=== PATIENT | male | born 1950 | race Caucasian/White ===

== ENCOUNTER 2016-06-09 14:31 | Inpatient (IN) | payer MEDICARE, BC, OTHER ==
[~2016-06-09] VITALS: Ht 182.9 cm; Wt 90.0 kg
[2016-06-09 14:34] VITALS: O2SAT 98
[2016-06-09] MEDS ORDERED: MORPHINE SULFATE 8 MG/ML INJ ONE (14:34)
[2016-06-09] MEDS ORDERED: ONDANSETRON HCL 4 MG/2 ML VIAL ONE (14:34)
[2016-06-09] MEDS ORDERED: DIPHTH/TETANUS/ACEL PERTUSSIS (BOOSTER) 0.5 ML VIAL/PFS IM ONE ×2 (14:37→15:13)
[2016-06-09] MEDS ORDERED: ceFAZolin 2 GM PREMIX 50 ML ONE (14:37)
[2016-06-09] MEDS: SODIUM CHLOR 0.9% 1000 ML INJ 1,000 ML IV SCH (15:01)
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
[2016-06-09] MEDS ORDERED: NALOXONE HCL 0.4 MG/ML AMP IV PRN (15:15)
[2016-06-09] MEDS ORDERED: MORPHINE SULFATE 4 MG/ML INJ IV PRN (15:15)
[2016-06-09] MEDS ORDERED: ONDANSETRON HCL 4 MG/2 ML VIAL IV PRN (15:15)
[2016-06-09] MEDS ORDERED: Post-op Orders (for Pharmacy) MISC XX ONE (15:15)
[2016-06-09] MEDS ORDERED: ACETAMINOPHEN/HYDROcodone 325 MG/5 MG TAB PO PRN (15:15)
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
[2016-06-09] MEDS ORDERED: MORPHINE SULFATE 4 MG/ML INJ IV PUSH ONE (15:30)
[2016-06-09 15:40] VITALS: BP 120/57; PULSE 46; RESP 20; O2SAT 96
[2016-06-09] MEDS ORDERED: LIDOCAINE 1%/EPINEPHrine 1:100,000 SOLN 20 ML VIAL INFIL ONE (15:45)
[2016-06-09 15:47] LABS: I-STAT POTASSIUM 4.2 MMOL/L (3.5-4.9)
[2016-06-09 16:00] VITALS: BP 122/58; PULSE 48; RESP 20; O2SAT 96
[2016-06-09 16:00] LABS: AUTOMATED NEUTROPHIL # 10.8 TH/MM3 (1.8-7.7); BASOPHIL % 0.1 % (0.0-2.0); EOSINOPHIL # 0.1 TH/MM3 (0-0.4); HEMATOCRIT 42.9 % (39.0-51.0); HEMO FLAGS DIFF FINAL; LYMPHOCYTE # 1.4 TH/MM3 (1.0-4.8); MEAN CELL VOLUME 94.8 FL (80.0-100.0); MEAN CORPUSCULAR HEMOGLOBIN 32.2 PG (27.0-34.0); MONO % 6.1 % (0.0-8.0); NEUT % 81.8 % (16.0-70.0); PLATELET COUNT 187 TH/MM3 (150-450); RED BLOOD COUNT 4.53 MIL/MM3 (4.50-5.90); RED CELL DISTRIBUTION WIDTH 13.3 % (11.6-17.2); WHITE BLOOD COUNT 13.1 TH/MM3 (4.0-11.0)
[2016-06-09] MEDS ORDERED: MORPHINE SULFATE 4 MG/ML INJ IV ONE (16:00)
[2016-06-09] MEDS ORDERED: ONDANSETRON HCL 4 MG/2 ML VIAL IV ONE (16:00)
[2016-06-09 16:11] LABS: APTT (PATIENT) 25.2 SEC (24.3-30.1); INTERNATIONAL NORMALIZED RATIO 1.1 RATIO; PROTHROMBIN TIME - PATIENT 12.1 SEC (9.8-11.6)
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
[2016-06-09] MEDS ORDERED: IOHEXOL 350 MG/ML 10 ML VIAL (for RAD DIAG) IV ONE (17:20)
[2016-06-09] MEDS ORDERED: FLUO-1 PO (17:55)
[2016-06-09] MEDS ORDERED: METF500T PO (17:55)
[2016-06-09] MEDS ORDERED: DICL50TA PO (17:55)
[2016-06-09] MEDS ORDERED: APIX5TAB PO (17:55)
[2016-06-09] MEDS ORDERED: ATOR40TA16 PO (17:55)
[2016-06-09] MEDS ORDERED: METO25TA3 PO (17:55)
[2016-06-09] MEDS ORDERED: RAMI10CA PO (17:55)
[2016-06-09] MEDS ORDERED: CLON0.5T PO (17:55)
[2016-06-09] MEDS ORDERED: ABIL5TAB6 PO (17:55)
[2016-06-09] MEDS ORDERED: AMLO5TAB2 PO (17:55)
[2016-06-09] MEDS ORDERED: BENZ100 PO (17:55)
[2016-06-09] MEDS ORDERED: PERC7.5T13 PO (17:55)
[2016-06-09] MEDS ORDERED: FLUT1SPR5 EACH NARE (17:55)
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
[2016-06-09] MEDS: LACTATED RINGER'S 1000 ML INJ 1,000 ML IV SCH (18:27)
[2016-06-09] MEDS: PANTOPRAZOLE SOD 40 MG DELAYED RELEASE TAB PO SCH (18:28)
[2016-06-09] MEDS ORDERED: DEXTROSE 50% IN WATER 50 ML VIAL(D50) IV PUSH PRN (18:45)
[2016-06-09] MEDS ORDERED: GLUCAGON 1 MG/ML VIAL OTHER PRN (18:45)
[2016-06-09 20:00] VITALS: BP 144/81; PULSE 57; RESP 18; TEMP 98.2; O2SAT 95
[2016-06-09] MEDS: SODIUM CHLORIDE 0.9% FLUSH 5 ML FLUSH IVF SCH (21:00)
[2016-06-09] MEDS: DOCUSATE SODIUM 100 MG CAP PO SCH (21:17)
[2016-06-09] MEDS: HYDROmorphone HCL PF 1 MG/ML VIAL IV PUSH PRN (21:21)
[2016-06-09] MEDS: INSULIN ASPART SUPPLEMENTAL SCALE SQ SCH (21:30)
[2016-06-10] VITALS (7 sets, daily range): BP systolic 104–147; BP diastolic 51–65; PULSE 60–77; RESP 18–20; TEMP 97.6–99; O2SAT 92–97
[2016-06-10] MEDS: HYDROmorphone HCL PF 1 MG/ML VIAL IV PUSH PRN ×7 (00:24→21:20)
[2016-06-10] MEDS: LACTATED RINGER'S 1000 ML INJ 1,000 ML IV SCH (00:55)
[2016-06-10] MEDS: SODIUM CHLOR 0.9% 1000 ML INJ 1,000 ML IV SCH ×3 (01:01→21:02)
[2016-06-10] MEDS ORDERED: SODIUM CHLORID 0.9% 500 ML INJ 500 ML IV ONE (05:30)
[2016-06-10] MEDS: INSULIN ASPART SUPPLEMENTAL SCALE SQ SCH ×4 (05:43→21:00)
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
[2016-06-10] MEDS: ARIPiprazole 5 MG TAB PO SCH (08:29)
[2016-06-10] MEDS: FLUoxetine HCL 10 MG CAP PO SCH (08:29)
[2016-06-10] MEDS: RAMIPRIL 5 MG CAP PO SCH (08:30)
[2016-06-10] MEDS: ATORVASTATIN 40 MG TAB PO SCH (08:30)
[2016-06-10] MEDS: amLODIPine BESYLATE 5 MG TAB PO SCH (08:30)
[2016-06-10] MEDS: DOCUSATE SODIUM 100 MG CAP PO SCH ×2 (08:30→21:00)
[2016-06-10 08:39] LABS: AUTOMATED NEUTROPHIL # 9.4 TH/MM3 (1.8-7.7); BASOPHIL % 0.1 % (0.0-2.0); EOSINOPHIL # 0.2 TH/MM3 (0-0.4); EOSINOPHIL % 1.6 % (0.0-4.0); HEMATOCRIT 38.9 % (39.0-51.0); HEMO FLAGS DIFF FINAL; LYMPH % 10.7 % (9.0-44.0); LYMPHOCYTE # 1.3 TH/MM3 (1.0-4.8); MEAN CELL VOLUME 96.8 FL (80.0-100.0); MEAN CORPUSCULAR HGB CONC 34.1 % (32.0-36.0); MONO % 8.3 % (0.0-8.0); NEUT % 79.3 % (16.0-70.0); PLATELET COUNT 155 TH/MM3 (150-450); RED BLOOD COUNT 4.02 MIL/MM3 (4.50-5.90); RED CELL DISTRIBUTION WIDTH 13.5 % (11.6-17.2); WHITE BLOOD COUNT 11.8 TH/MM3 (4.0-11.0)
[2016-06-10] MEDS: SODIUM CHLORIDE 0.9% FLUSH 5 ML FLUSH IVF SCH ×2 (08:50→21:00)
[2016-06-10 08:54] LABS: BICARBONATE 23.5 MEQ/L (21.0-32.0); POTASSIUM 4.1 MEQ/L (3.5-5.1)
[2016-06-10] MEDS ORDERED: DILTIAZEM-CD 180 MG CAP ER PO SCH (09:00)
[2016-06-10] MEDS: SODIUM CHLORIDE 0.9% FLUSH 5 ML FLUSH IVF PRN ×3 (09:50→16:08)
[2016-06-10] MEDS ORDERED: oxyCODONE/ACETAMINOPHEN 5 MG/325 MG TAB PO PRN (10:30)
[2016-06-10] MEDS: oxyCODONE/ACETAMINOPHEN 5 MG/325 MG TAB PO PRN ×2 (11:21→17:38)
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
[2016-06-10] MEDS: TAMSULOSIN HCL 0.4 MG CAP PO SCH (13:01)
--- NOTE | 2016-06-10 13:29 | EKG ---
Date Performed: 06/09/2016 Time Performed: 15:53:33 PTAGE: 89 years EKG: SINUS BRADYCARDIA BORDERLINE ECG NO PREVIOUS TRACING DOCTOR: Fred Weiss Interpretating Date/Time 06/10/2016 13:27:56
[2016-06-10] MEDS ORDERED: WALKER WHEELS/F1 MIS (15:15)
[2016-06-10] MEDS: PANTOPRAZOLE SOD 40 MG DELAYED RELEASE TAB PO SCH (16:05)
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
[2016-06-11] VITALS: BP 150/69; PULSE 82; RESP 18; TEMP 97.8; O2SAT 94
[2016-06-11] MEDS: oxyCODONE/ACETAMINOPHEN 5 MG/325 MG TAB PO PRN ×4 (00:59→18:35)
[2016-06-11] MEDS: HYDROmorphone HCL PF 1 MG/ML VIAL IV PUSH PRN ×4 (05:09→22:16)
[2016-06-11] MEDS: INSULIN ASPART SUPPLEMENTAL SCALE SQ SCH ×4 (05:10→21:00)
[2016-06-11] MEDS: SODIUM CHLOR 0.9% 1000 ML INJ 1,000 ML IV SCH (05:11)
[2016-06-11] MEDS: TAMSULOSIN HCL 0.4 MG CAP PO SCH (07:29)
[2016-06-11] MEDS: ARIPiprazole 5 MG TAB PO SCH (07:29)
[2016-06-11] MEDS: DOCUSATE SODIUM 100 MG CAP PO SCH ×2 (07:30→22:16)
[2016-06-11] MEDS: RAMIPRIL 5 MG CAP PO SCH (07:30)
[2016-06-11] MEDS: FLUoxetine HCL 10 MG CAP PO SCH (07:30)
[2016-06-11] MEDS: amLODIPine BESYLATE 5 MG TAB PO SCH (07:30)
[2016-06-11] MEDS: ATORVASTATIN 40 MG TAB PO SCH (07:31)
[2016-06-11] MEDS: SODIUM CHLORIDE 0.9% FLUSH 5 ML FLUSH IVF SCH ×2 (07:33→09:39)
[2016-06-11 07:51] VITALS: O2SAT 95
[2016-06-11 08:00] VITALS: BP 141/64; PULSE 65; RESP 16; TEMP 99; O2SAT 96
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
[2016-06-11] MEDS ORDERED: LACTULOSE SYRUP 20 GM/30 ML CUP PO ONE (10:30)
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
[2016-06-11 12:00] VITALS: BP 115/58; PULSE 63; RESP 16; TEMP 98.5; O2SAT 96
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
[2016-06-11 16:00] VITALS: BP 133/61; PULSE 87; RESP 18; TEMP 98.9; O2SAT 96
[2016-06-11] MEDS: PANTOPRAZOLE SOD 40 MG DELAYED RELEASE TAB PO SCH (16:28)
[2016-06-11 20:00] VITALS: BP 130/65; PULSE 77; RESP 20; TEMP 98.5; O2SAT 94
[2016-06-11] MEDS: APIXABAN 5 MG TABLET PO SCH (22:16)
[2016-06-12] VITALS: BP 145/71; PULSE 78; RESP 20; TEMP 98.3; O2SAT 93
[2016-06-12] MEDS: oxyCODONE/ACETAMINOPHEN 5 MG/325 MG TAB PO PRN ×3 (04:18→17:35)
[2016-06-12] MEDS: HYDROmorphone HCL PF 1 MG/ML VIAL IV PUSH PRN ×3 (05:53→18:29)
[2016-06-12] MEDS: INSULIN ASPART SUPPLEMENTAL SCALE SQ SCH ×4 (05:56→20:31)
[2016-06-12] MEDS ORDERED: BISACODYL 10 MG SUPP RECTAL ONE (08:15)
[2016-06-12] MEDS ORDERED: BISACODYL EC 5 MG TABEC PO ONE (08:15)
[2016-06-12 08:26] VITALS: BP 120/58; PULSE 79; RESP 19; TEMP 98.7; O2SAT 94
[2016-06-12] MEDS: ARIPiprazole 5 MG TAB PO SCH (08:27)
[2016-06-12] MEDS: FLUoxetine HCL 10 MG CAP PO SCH (08:28)
[2016-06-12] MEDS: RAMIPRIL 5 MG CAP PO SCH (08:29)
[2016-06-12] MEDS: TAMSULOSIN HCL 0.4 MG CAP PO SCH (08:30)
[2016-06-12] MEDS: amLODIPine BESYLATE 5 MG TAB PO SCH (08:30)
[2016-06-12] MEDS: ATORVASTATIN 40 MG TAB PO SCH (08:31)
[2016-06-12] MEDS: APIXABAN 5 MG TABLET PO SCH ×2 (08:31→20:54)
[2016-06-12] MEDS: DOCUSATE SODIUM 100 MG CAP PO SCH ×2 (08:31→20:54)
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
[2016-06-12] MEDS: SODIUM CHLORIDE 0.9% FLUSH 5 ML FLUSH IVF SCH ×2 (12:07→20:54)
[2016-06-12] MEDS ORDERED: TAMS5CAP PO (12:12)
[2016-06-12] MEDS ORDERED: PANT40TA3 PO (12:12)
[2016-06-12] MEDS ORDERED: ARIP1TAB11 PO (12:12)
[2016-06-12] MEDS ORDERED: RAMI5CAP PO (12:12)
[2016-06-12] MEDS ORDERED: AMLO5 PO (12:12)
[2016-06-12] MEDS ORDERED: APIX5TAB PO (12:12)
[2016-06-12] MEDS ORDERED: FLUO-1 PO (12:12)
[2016-06-12] MEDS ORDERED: LIPI40TA PO (12:12)
[2016-06-12] MEDS ORDERED: DOCU1CAP39 PO (12:12)
[2016-06-12 12:44] VITALS: BP 150/70; PULSE 82; RESP 19; TEMP 97; O2SAT 94
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
[2016-06-12 15:15] VITALS: O2SAT 98
[2016-06-12 17:21] VITALS: BP 132/63; PULSE 76; RESP 20; TEMP 96.9; O2SAT 93
[2016-06-12] MEDS: PANTOPRAZOLE SOD 40 MG DELAYED RELEASE TAB PO SCH (17:34)
[2016-06-12 20:00] VITALS: BP 118/58; PULSE 75; RESP 19; TEMP 97.1; O2SAT 93
[2016-06-12] MEDS: MAGNESIUM HYDROXIDE SUSP 30 ML CUP PO SCH (20:54)
[2016-06-13] VITALS: BP 97/52; PULSE 77; RESP 19; TEMP 96.2; O2SAT 94
[2016-06-13] MEDS: HYDROmorphone HCL PF 1 MG/ML VIAL IV PUSH PRN ×4 (01:42→21:05)
[2016-06-13] MEDS: INSULIN ASPART SUPPLEMENTAL SCALE SQ SCH ×2 (05:16→20:10)
[2016-06-13] MEDS: oxyCODONE/ACETAMINOPHEN 5 MG/325 MG TAB PO PRN ×3 (06:03→20:12)
[2016-06-13] MEDS: ARIPiprazole 5 MG TAB PO SCH (07:48)
[2016-06-13] MEDS: FLUoxetine HCL 10 MG CAP PO SCH (07:48)
[2016-06-13] MEDS: DOCUSATE SODIUM 100 MG CAP PO SCH ×2 (07:49→20:11)
[2016-06-13] MEDS: ATORVASTATIN 40 MG TAB PO SCH (07:49)
[2016-06-13] MEDS: RAMIPRIL 5 MG CAP PO SCH (07:49)
[2016-06-13] MEDS: amLODIPine BESYLATE 5 MG TAB PO SCH (07:49)
[2016-06-13] MEDS: TAMSULOSIN HCL 0.4 MG CAP PO SCH (07:49)
[2016-06-13] MEDS: SODIUM CHLORIDE 0.9% FLUSH 5 ML FLUSH IVF SCH ×2 (07:51→20:11)
[2016-06-13 08:00] VITALS: BP 115/52; PULSE 88; RESP 19; TEMP 99.2; O2SAT 95
[2016-06-13] MEDS ORDERED: BISACODYL 10 MG SUPP RECTAL ONE (08:15)
[2016-06-13] MEDS ORDERED: BISACODYL EC 5 MG TABEC PO ONE (08:15)
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
[2016-06-13 12:00] VITALS: BP 166/90; PULSE 91; RESP 18; TEMP 98.1; O2SAT 95
[2016-06-13] MEDS: APIXABAN 5 MG TABLET PO SCH ×2 (13:10→20:26)
[2016-06-13] MEDS: PANTOPRAZOLE SOD 40 MG DELAYED RELEASE TAB PO SCH (14:13)
[2016-06-13 16:00] VITALS: BP 121/45; PULSE 89; RESP 20; TEMP 98.8; O2SAT 95
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
[2016-06-13 20:00] VITALS: BP 137/55; PULSE 73; RESP 20; TEMP 98.6; O2SAT 95
[2016-06-13] MEDS: DOCUSATE SODIUM 50 MG/SENNA 8.6 MG TAB PO SCH (20:11)
[2016-06-13] MEDS: MAGNESIUM HYDROXIDE SUSP 30 ML CUP PO SCH (20:11)
[2016-06-14] VITALS: BP 133/64; PULSE 75; RESP 19; TEMP 97.7; O2SAT 93
[2016-06-14] MEDS: oxyCODONE/ACETAMINOPHEN 5 MG/325 MG TAB PO PRN ×2 (01:59→10:57)
[2016-06-14] MEDS: INSULIN ASPART SUPPLEMENTAL SCALE SQ SCH ×2 (05:35→10:59)
[2016-06-14] MEDS: HYDROmorphone HCL PF 1 MG/ML VIAL IV PUSH PRN (06:41)
[2016-06-14 08:00] VITALS: BP 130/62; PULSE 60; RESP 20; TEMP 97.2; O2SAT 94
[2016-06-14] MEDS: ATORVASTATIN 40 MG TAB PO SCH (08:41)
[2016-06-14] MEDS: ARIPiprazole 5 MG TAB PO SCH (08:41)
[2016-06-14] MEDS: amLODIPine BESYLATE 5 MG TAB PO SCH (08:41)
[2016-06-14] MEDS: FLUoxetine HCL 10 MG CAP PO SCH (08:41)
[2016-06-14] MEDS: APIXABAN 5 MG TABLET PO SCH (08:41)
[2016-06-14] MEDS: TAMSULOSIN HCL 0.4 MG CAP PO SCH (08:41)
[2016-06-14] MEDS: DOCUSATE SODIUM 100 MG CAP PO SCH (08:42)
[2016-06-14] MEDS: DOCUSATE SODIUM 50 MG/SENNA 8.6 MG TAB PO SCH (08:42)
[2016-06-14] MEDS: SODIUM CHLORIDE 0.9% FLUSH 5 ML FLUSH IVF SCH (08:42)
[2016-06-14] MEDS: RAMIPRIL 5 MG CAP PO SCH (08:42)
[2016-06-14] MEDS ORDERED: MAGNESIUM CITRATE SOLN 300 ML BTL PO ONE (09:00)
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
[2016-06-14] MEDS ORDERED: OXYC1TAB63 PO (10:57)
[2016-06-14 12:00] VITALS: BP 130/63; PULSE 66; RESP 19; TEMP 98; O2SAT 96
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
[2016-07-03] MEDS ORDERED: FEXO15TA PO (07:50)
[2016-07-03] MEDS ORDERED: HYDR-3288 PO (11:04)
[2016-07-03] MEDS ORDERED: PERC7.5T13 PO (11:07)
== END 2016-06-14 14:28 | DRG 563 ==
LOC: NEPI 14:31 → NEDA 15:48 → EDBD 15:48 → N07B 19:00
PROVIDERS: ADMIT Surgery; ATTEND Surgery
PROC: 0HQ1XZZ Repair Face Skin, External Approach (ICD-10-PCS; principal; 2016-06-09)
PROC: 0T9B70Z Drainage of Bladder with Drainage Device, Via Natural or Artificial Opening (ICD-10-PCS; 2016-06-10)
DX: S52.542A Smith's fracture of left radius, initial encounter for closed fracture (principal); I95.9 Hypotension, unspecified; I48.91 Unspecified atrial fibrillation; I10 Essential (primary) hypertension; R00.1 Bradycardia, unspecified; S01.21XA Laceration without foreign body of nose, initial encounter; E11.9 Type 2 diabetes mellitus without complications; E78.5 Hyperlipidemia, unspecified; K59.00 Constipation, unspecified; N40.1 Benign prostatic hyperplasia with lower urinary tract symptoms; R33.8 Other retention of urine; M19.032 Primary osteoarthritis, left wrist; M19.042 Primary osteoarthritis, left hand; F17.210 Nicotine dependence, cigarettes, uncomplicated; F32.9 Major depressive disorder, single episode, unspecified; V29.9XXA Motorcycle rider (driver) (passenger) injured in unspecified traffic accident, initial encounter; Z79.01 Long term (current) use of anticoagulants; Z79.84 Long term (current) use of oral hypoglycemic drugs
CPT/HCPCS: 12011; 70450; 71010; 72125; 72170; 73110; 73200; 74177; 76937; 80048; 82435; 82565; 82947; 82948; 84132; 84295; 84520; 85025; 85610; 85730; 86850; 86900; 86901; 90471; 90715; 93005; 94150; 96374; 96375; 99291; A0431-QM-SH; A0436-QM-SH; G0390; J0690; J1170; J1815; J2270; J2405; J7030; J7040; J7120; L3808; Q9967

== ENCOUNTER → 2016-07-03 | Day surgery (SDC) | payer MEDICARE, BC, OTHER ==
[~2016-07-03] VITALS: Ht 182.9 cm; Wt 101.0 kg
[~2016-07-03] MED LIST: *morphine SULFATE 8 MG/ML PERIprocedure ONLY ONE; ACETAMINOPHEN 1000 MG/100 ML VIAL IV ONE; ACETAMINOPHEN/HYDROcodone 325 MG/7.5 MG TAB PO PRN; AMLO5 PO; APIX5TAB PO; ARIP1TAB11 PO; BENZ100 PO; BUPIVACAINE/EPINEPHRINE 0.25% PF 30 ML VIAL ONE; CHLORHEXIDINE GLUCONATE 4% SOLN 120 ML BTL TOP SCH; CLON0.5T PO; DEXAMETHASONE SOD PHOS 4 MG/ML VIAL ONE; DICL50TA PO; DO NOT ADM ANY ANTICOAGULANT DRUGS XX PRN; DOCU1CAP39 PO; FAMOTIDINE 20 MG/2 ML VIAL ONE; FEXO15TA PO; FLUO-1 PO; FLUT1SPR5 EACH NARE; GENTAMICIN SULFATE 80 MG/2 ML VIAL ONE; HYDR-3288 PO; HYDROmorphone HCL PF 2 MG/ML VIAL ONE; INSULIN HUMAN REGULAR 1,000 UNITS/10 ML VIAL SQ PRN; LACTATED RINGER'S 1000 ML IV SCH; LIPI40TA PO; METF500T PO; METO25TA3 PO; METOPROLOL TARTRATE 25 MG TAB PO PRN; MIDAZOLAM HCL 2 MG/2 ML VIAL ONE; MORPHINE SULFATE 4 MG/ML INJ IV PUSH PRN; NORMOSOL R INJ 1,000 ML IV ONE; ONDANSETRON HCL 4 MG/2 ML VIAL IV PUSH ONE; OXYC1TAB63 PO; PANT40TA3 PO; PERC7.5T13 PO; PROPOFOL 200 MG/20 ML AMP IV ONE; RAMI5CAP PO; SODIUM CHLORID 0.9% 500 ML IV SCH; TAMS5CAP PO; VANCOMYCIN 1000 MG/NS 250 ML (for <70 kg) IV SCH; WALKER WHEELS/F1 MIS; ceFAZolin 2 GM PREMIX 50 ML IV SCH; ePHEDrine/NS 25 MG/5 ML SYR IV ONE; fentaNYL CITRATE 250 MCG/5 ML AMP ONE
[2016-07-03 08:01] VITALS: BP 141/70; PULSE 49; RESP 16; TEMP 97.7; O2SAT 97
--- NOTE | 2016-07-03 11:40 | PD.OP ---
cc: Jose Correa MD Operative Report Date of Surgery: Jul 03, 2016 Preoperative Diagnosis: Comminuted displaced intra-articular left distal radius fracture Postoperative Diagnosis: Procedure: Same Anesthesia: Gen. Surgeon: Jose Correa [employer] Installer(s): MACKENZIE Cross PA-C The surgical procedure was assisted by my physician automobile mechanic assistant. My P.A. presence was necessary throughout this case for the manipulation and positioning of the surgical extremity. My P.A. was assisting me throughout the duration of this procedure. The skill set of a physician automobile mechanic assistant was medically necessary to complete this procedure. During the surgical case the facility maintenance technician was working at the back table and the physician automobile mechanic assistant was directly assisting me. Operation and Findings: Patient was seen and evaluated preoperatively and found to have a displaced intra-articular left distal radius fracture. Informed consent was obtained after detailed discussion of risk and benefits including bleeding, infection, injury to arteries, nerves, and blood vessels, weakness and numbness of hand, and tendon rupture. Informed consent was obtained. Patient received IV antibiotics prior to incision. Timeout procedure was performed. Operative extremity was prepped with alcohol followed by Hibiclens and draped usual sterile fashion. A standard volar approach to the distal radius was utilized. A 3 inch incision was made over the FCR tendon. Tendon sheath was opened. Pronator quadratus was elevated up. The fracture site was now visualized. The fracture did have intra-articular extension. The articular surface was multiple fragments. Traction was applied. The articular surface was reduced. A Synthes 2 column variable angle plate was selected. Plate was provisionally fixed to bone with K wires. 2.7 and 2.4 cortical screws were used to compress plate to bone. Fluoroscopy confirmed appropriate alignment of fracture with well-placed hardware. Multiple 2.4 locking screws were now placed distally. Screws were predrilled and measured for appropriate length. 2 additional screws were placed into the shaft. K wires were removed. Final fluoroscopy revealed excellent of fracture with well-placed hardware. The wound was thoroughly irrigated with sterile saline. Subcutaneous tissue was closed with 3-0 Vicryl and skin was closed with 3-0 nylon. Sterile dressings were applied with Xeroform, 4 x 4, soft roll, and a well padded volar splint. Patient was awakened and transferred to recovery room in stable condition Jose Correa MD Jul 03, 2016 11:40
[2016-07-03 14:25] VITALS: BP 158/81; PULSE 62; RESP 18; TEMP 97.8; O2SAT 97
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
--- NOTE | 2016-07-03 17:19 | EKG ---
Date Performed: 07/03/2016 Time Performed: 07:57:10 PTAGE: 66 years EKG: SINUS BRADYCARDIA Since previous tracing, no significant change noted BORDERLINE ECG PREVIOUS TRACING : 06/09/2016 15.53 DOCTOR: Matt Savage Interpretating Date/Time 07/03/2016 17:17:56
== END | disposition home or self-care (01) ==
LOC: HSDC 07:01
PROVIDERS: ATTEND Orthopaedic Surgery Orthopaedic Trauma
DX: S52.502A Unspecified fracture of the lower end of left radius, initial encounter for closed fracture (principal); I48.91 Unspecified atrial fibrillation; I10 Essential (primary) hypertension
CPT/HCPCS: 01830; 25609; 73100; 76000; 93005; C1713; J0131; J0690; J1100; J1170; J1580; J2250; J2270; J2405; J3010; J3370; J7050; J7120